=== PATIENT | male | born 1980 | race Caucasian/White ===

== ENCOUNTER 2020-10-23 19:53 | Emergency (ER) | payer BC, OTHER ==
[2020-10-23] MEDS ORDERED: Diphtheria,Pertussis(Acell),Tetanus Vaccine 0.5 ML Syringe IM ONE (20:17)
[2020-10-23] MEDS ORDERED: Bacitracin Oint 1 GM U/D Packet TOP ONE (20:17)
--- NOTE | 2020-10-23 20:19 | EDM.PDOC ---
ED HPI GENERAL MEDICAL PROBLEM - General Chief Complaint: Laceration Stated Complaint: RT HAND LACERATION Time Seen by Provider: 10/23/20 20:15 Source of Information: Reports: Patient History Limitations: Reports: No Limitations - History of Present Illness INITIAL COMMENTS - FREE TEXT/NARRATIVE: HISTORY AND PHYSICAL: History of present illness: Patient is a 40-year-old male who presents to the emergency room with complaints of a laceration to his left index and thumb finger. He was using a utility knife when it slipped and ran across the 2 fingers resulting in a laceration. He does have good flexion and extension of the fingers. Denies any crush injury associated with this. Denies any other extremity involvement. No systemic complaints are offered. Unsure of his last tetanus update. Review of systems: As per history of present illness and below otherwise all systems reviewed and negative. Past medical history: As per history of present illness and as reviewed below otherwise noncontributory. Surgical history: As per history of present illness and as reviewed below otherwise noncontributory. Social history: See social history for further information Family history: As per history of present illness and as reviewed below otherwise noncontributory. Physical exam: General: Well developed and well nourished. Alert and orientated x 3. Nontoxic in appearance and in no acute distress. Vital signs are stable and have been reviewed by me. Nursing notes were reviewed. HEENT: Atraumatic, normocephalic, pupils equal and reactive bilaterally, negati ve for conjunctival pallor or scleral icterus, mucous membranes moist, TMs normal bilaterally, throat clear, neck supple, nontender, trachea midline. No drooling or trismus noted. No meningeal signs. No hot potato voice noted. Lungs: Clear to auscultation bilaterally. No wheezes, rales, or rhonchi. Chest nontender. Normal work of breathing, no accessory muscles used. Heart: S1S2, regular rate and rhythm without overt murmur, gallops, or rubs. No JVD. No peripheral edema Abdomen: Soft, nondistended, nontender. Normoactive bowel sounds. Negative for masses or costovertebral tenderness. Pelvis: Stable nontender. Genitourinary/Rectal: Deferred. Skin: 4 cm laceration across the MIP joint of the left index finger. Appears to have no tendon involvement. 4 cm "C" shaped laceration to medial left thumb. Remaining skin is intact, warm, dry. No lesions or rashes noted. Hematologic: No petechiae or purpra. Mucosa appropriate color and normal nail bed color and refill. Extremities: See SKIN for details. He moves all extremities per self without difficulty or deficits, negative for cords or calf pain. Neurovascular unremarkable. Neuro: Awake, alert, oriented. Cranial nerves II through XII unremarkable. Cerebellum unremarkable. Motor and sensory unremarkable throughout. Exam nonfocal. Psychiatric: Mood and affect are appropriate. Normal thought process. Answering questions appropriately. Notes: *This patient was seen and evaluated during the 2019 SARS-CoV-2 novel coronavirus pandemic period. Community viral transmission is ongoing at time of this encounter and the emergency department is operating under pandemic response procedures. Patient declines imaging. Tdap updated. 1% lidocaine was used to anesthetize the area. Wound wash and chlorhexidine was used to thoroughly cleanse the sites. Usual and customary procedures were followed for suture placement. #6 interrupted sutures placed to left thumb. Dermabond applied to abrasion near the nailbed and midthumb (to superficial to suture). #7 interrupted sutures placed to left index finger. Dermabond applied to abrasion near the nailbed. Patient tolerated well. Spoon splint applied to index finger to prevent bending of the finger, sutures over middle knuckle. I have talked with the patient about today's findings, in addition to providing specific details for plan of care. Reassessment at the time of disposition demo nstrates that the patient is in no acute distress. The patient is stable for discharge, counseling was provided and we discussed in great detail signs and symptoms that would prompt them to return to the Emergency Department. Medication, follow up and supportive care measures were reviewed and discussed. Voices understanding and is agreeable to plan of care. Denies any further questions or concerns at this time. Diagnostics: None Therapeutics: Tdap, bacitracin, lidocaine Prescription: Keflex, Tramadol (#15) Impression: Laceration Plan: 1. Keep the area clean and dry. Continue to monitor for signs of infection. Sutures to be removed in 7-10 days. Wear the finger splint to prevent the sutures from opening. 2. Tylenol and/or ibuprofen as needed for pain management. 3. Please follow-up with your primary care provider in the next 1-2 days. Return to the ED as needed and as discussed. Definitive disposition and diagnosis as appropriate pending reevaluation and review of above. left hand lac Pain Score (Numeric/FACES): 2 - Related Data Allergies Allergy/AdvReac Type Severity Reaction Status Date / Time No Known Allergies Allergy Verified 10/23/20 20:34 Home Meds: Home Meds cephALEXin [Keflex] 500 mg PO BID 5 Days #10 cap 10/23/20 [Rx] ED ROS GENERAL - Review of Systems Review Of Systems: Comprehensive ROS is negative, except as noted in HPI. ED EXAM, SKIN/RASH Exam: See Below (See dictation) ED SKIN PROCEDURES - Laceration/Wound Repair Left thumb Appearance: Subcutaneous, Irregular, Clean Distal NVT: Neuro & Vascular Intact, No Tendon Injury Anesthetic Type: Local Local Anesthetic Volume: 2cc Skin Prep: Chlorhexidine (Hibiciens), Saline, Sterile Drape Saline Irrigation (cc's): 250 Exploration/Debridement/Repair: Wound Explored, In a Bloodless Field, Explored to Base, No Foreign Material Found Closed with: Sutures, Dermabond Lac/Wound length In cm: 4 Suture Size: 4-0 Suture Type: Nylon, Interrupted, Simple Drain Placement: No Sterile Dressing Applied: Provider Tetanus Status Addressed: Yes Complications: No Left index finger Appearance: Linear, Clean Anesthetic Type: Local Local Anesthesia - Lidocaine (Xylocaine): 1% Plain Local Anesthetic Volume: 3cc Skin Prep: Chlorhexidine (Hibiciens), Saline, Sterile Drape Saline Irrigation (cc's): 250 Exploration/Debridement/Repair: Wound Explored, In a Bloodless Field, Explored to Base, No Foreign Material Found Closed with: Sutures, Dermabond Lac/Wound length In cm: 4 Suture Size: 4-0 # of Sutures: 7 Suture Type: Nylon, Interrupted, Simple Drain Placement: No Sterile Dressing Applied: Provider Tetanus Status Addressed: Yes Complications: No Course - Vital Signs Last Recorded V/S: Last Vital Signs Temp 98.7 F 10/23/20 20:35 Pulse 89 10/23/20 20:35 Resp 18 10/23/20 20:35 BP 141/85 H 10/23/20 20:35 Pulse Ox 96 10/23/20 20:35 - Orders/Labs/Meds Orders: Active Orders 24 hr Category Date Time Status Vaccines to be Administered [RC] PER UNIT ROUTINE Care 10/23/20 20:18 Active DME for Discharge [COMM] Stat Oth 10/23/20 21:07 Ordered Meds: Medications Discontinued Medications Generic Name Dose Route Start Last Admin Trade Name Dianna PRN Reason Stop Dose Admin Bacitracin 2 dose 10/23/20 20:17 10/23/20 20:42 Bacitracin Oint 1 Gm U/D Packet TOP 10/23/20 20:18 2 dose ONETIME ONE Administration Cephalexin 500 mg 10/23/20 21:04 Cephalexin 500 Mg Cap PO 10/23/20 21:05 ONETIME ONE Diphtheria/Tetanus/Acell Pertussis 0.5 ml 10/23/20 20:17 10/23/20 20:42 Diphtheria,Pertussis(Acell),Tetanus Vaccine 0.5 Ml Syringe IM 10/23/20 20:18 0.5 ml .ONCE ONE Administration Lidocaine HCl 10 ml 10/23/20 20:17 10/23/20 20:41 Lidocaine 1% 5 Ml Sdv INJECT 10/23/20 20:18 10 ml ONETIME ONE Administration Octyl Cyanoacrylate 1 applic 10/23/20 21:04 Octyl 2-Cyanoacrylate 1 Tube TOP 10/23/20 21:05 ONETIME ONE Departure - Departure Time of Disposition: 21:11 Disposition: Home, Self-Care 01 Clinical Impression: Laceration - Discharge Information Prescriptions: cephALEXin [Keflex] 500 mg PO BID 5 Days #10 cap Instructions: Laceration Care, Adult, [id number] Referrals: Janes Reynolds MD [Primary Care Provider] - Forms: ED Department Discharge Additional Instructions: The following information is given to patients seen in the emergency department who are being discharged to home. This information is to outline your options for follow-up care. We provide all patients seen in our emergency department with a follow-up referral. The need for follow-up, as well as the timing and circumstances, are variable depending upon the specifics of your emergency department visit. If you don't have a primary care physician on staff, we will provide you with a referral. We always advise you to contact your personal physician following an emergency department visit to inform them of the circumstance of the visit and for follow-up with them and/or the need for any referrals to a consulting specialist. The emergency department will also refer you to a specialist when appropriate. This referral assures that you have the opportunity for follow-up care with a specialist. All of these measure are taken in an effort to provide you with optimal care, which includes your follow-up. Under all circumstances we always encourage you to contact your private physician who remains a resource for coordinating your care. When calling for follow-up care, please make the office aware that this follow-up is from your recent emergency room visit. If for any reason you are refused follow-up, please contact the [facility] at and asked to speak to the emergency department charge nurse. [facility] [address] [place] [address] [facility] [address] [place] [phone] Thank you for choosing the [facility] emergency department in [place] for your medical needs today. It was a pleasure caring for you. Today you were seen in the emergency department for laceration care. 1. Keep the area clean and dry. Continue to monitor for signs of infection. Sutures to be removed in 7-10 days. Wear the finger splint to prevent the sutures from opening. 2. Tylenol and/or ibuprofen as needed for pain management. 3. Please follow-up with your primary care provider in the next 1-2 days. Return to the ED as needed and as discussed. Sepsis Event Note (ED) - Focused Exam Vital Signs: Vital Signs Temp Pulse Resp BP Pulse Ox 10/23/20 20:35 98.7 F 89 18 141/85 H 96 - My Orders Last 24 Hours: My Active Orders 10/23/20 20:18 Vaccines to be Administered [RC] PER UNIT ROUTINE 10/23/20 21:07 DME for Discharge [COMM] Stat - Assessment/Plan Last 24 Hours: My Active Orders 10/23/20 20:18 Vaccines to be Administered [RC] PER UNIT ROUTINE 10/23/20 21:07 DME for Discharge [COMM] Stat
[2020-10-23] MEDS ORDERED: Cephalexin 500 MG Cap PO ONE (21:04)
[2020-10-23] MEDS ORDERED: Octyl 2-Cyanoacrylate 1 Tube TOP ONE (21:04)
== END 2020-10-23 21:50 | disposition home or self-care (01) ==
LOC: MW.ED 19:53
DX: S61.211A Laceration without foreign body of left index finger without damage to nail, initial encounter (principal); S61.012A Laceration without foreign body of left thumb without damage to nail, initial encounter; Z23 Encounter for immunization; W26.0XXA Contact with knife, initial encounter
CPT/HCPCS: 12004; 90471; 90715; 99282; A9270; 99283